=== PATIENT | male | born 1965 | race Caucasian/White ===

== ENCOUNTER 2020-11-19 00:15 | Emergency (ER) | payer OTHER ==
[~2020-11-19] VITALS: Ht 165.1 cm; Wt 72.6 kg
[2020-11-19 00:17] VITALS: BP 123/83
--- NOTE | 2020-11-19 00:20 | NUR ---
TO LOBBY A/W BED AMBULATORY, WITH FAMILY
--- NOTE | 2020-11-19 02:15 | NUR ---
PATIENT AMBUALTED TO BED 11 WITH STEADY GAIT. WALDEMAR BONILLA AT BEDSIDE FOR MEDICAL EVALUATION.
[2020-11-19] MEDS ORDERED: ACETAMINOPHEN 325 MG TAB PO ONE (02:25)
--- NOTE | 2020-11-19 02:25 | NUR ---
PATIENT 55 Y/O MALE BIB SELF FOR C/O FALL X 4 HOURS AGO. PER PATIENT AND FAMILY MEMBER PATIENT HIT BACK OF HEAD S/P FALL. PER PATIENT "FELT DIZZY BECAUSE I HAD 3 SHOUTS OF WHISKEY AND I LOST MY BALANCE." PER FAMILY MEMBER WHO WITNESSED FALL PATIENT DID NOT LOC. PATIENT DENIES BLURRED VISION BUT STATES "STILL FEELS A LITTLE DIZZY. ROM EQUAL AND INTACT. NO BRISUING OR ABRASIONS NOTED AT SITE. PERRLA 3MM BRISK. PATEITN A &O X 4. MEDHX: DENIES ALLERGIES: PCN
--- NOTE | 2020-11-19 02:50 | NUR ---
PATIENT STATES PAIN 4/10 MACIAS. PAIN IS THROBBING AND NON-RADAITING. PATIENT GIVEN PAIN MEDICATION ORDERED.
--- NOTE | 2020-11-19 02:52 | NUR ---
PT TAKEN TO CT
--- NOTE | 2020-11-19 03:02 | NUR ---
PT RETURN FROM CT
--- NOTE | 2020-11-19 04:01 | NUR ---
PATIENT STATES PAIN HAS DECREASED FROM 4/10 TO 0/10. LIGHTS DIMMED FOR PATIENT COMFORT. SON REMAINS AT BEDSIDE. PATIENT VSS. PATIENT BED IS LOCKED AND IN LOWEST POSITION.
[2020-11-19 04:54] VITALS: BP 128/78
--- NOTE | 2020-11-19 04:54 | NUR ---
Patient discharged with v/s stable. Written and verbal after care instructions given and explained. Patient verbalized understanding. Ambulatory with steady gait. All questions addressed prior to discharge. Advised to follow up with PMD.
== END 2020-11-19 04:54 | disposition home or self-care (01) ==
LOC: MED 00:15
DX: S00.03XA Contusion of scalp, initial encounter (principal); F10.129 Alcohol abuse with intoxication, unspecified; R42 Dizziness and giddiness; H53.149 Visual discomfort, unspecified; Z88.0 Allergy status to penicillin; X58.XXXA Exposure to other specified factors, initial encounter; Y93.89 Activity, other specified; Y92.89 Other specified places as the place of occurrence of the external cause; Y99.8 Other external cause status
CPT/HCPCS: 70450; 72125; 99285